=== PATIENT | male | born 1960 | race Caucasian/White ===

== ENCOUNTER → 2023-05-17 13:51 | Outpatient (CLI) | payer MEDICARE, SELFPAY ==
--- NOTE | ~2023-05-17 | MR_ITS ---
EXAMINATION: MR knee LT wo con DATE: 05/17/2023 14:34 INDICATION: Left knee pain and locking TECHNIQUE: Magnetic resonance imaging (MRI) of the left knee was performed without intravenous contra st. Sequences included coronal PD-weighted FSE, coronal PD-weighted FS FSE, sagittal T2-weighted FSE , sagittal PD-weighted FS FSE and axial PD weighted fat saturated FSE. COMPARISON: None. FINDINGS: Medial compartment: Complex tear of the body and posterior horn of the medial meniscus. There is medial extrusion of the meniscal body. The posterior horn appears small and there appears be a displaced meniscal flap extend ing cephalad from the meniscal body in the recess along the medial margin of the anterior weightbeari ng medial femoral condyle. Linear increased signal such with secondary tear planes within the remaini ng small posterior horn. Extensive partial thickness chondral ulceration in the medial compartment. T his includes deep chondral ulceration involving greater than 50% the cartilage thickness mild underly ing edema-like signal change at the central to medial aspect of the medial tibial plateau and at the junction of the anterior to central weightbearing medial femoral condyle. Small marginal osteophytes are present. Lateral compartment: Lateral meniscus is normal. Chondral swelling with deep fissuring an underlying small focus of subart icular edema-like signal change at the anterior weightbearing lateral femoral condyle. Additional par tial thickness cartilage loss without degenerative subchondral changes at the central aspect of the l ateral tibial plateau. Patellofemoral compartment: Partial-thickness chondral ulceration involving greater than 50% the cartilage thickness at the caldwell lar apical ridge and lateral side of the medial facet with relatively smooth chondral surface and wit hout degenerative subchondral changes. Shallow chondral fissuring at the central to medial aspect of the lateral patellar facet. Partial-thickness chondral ulceration involving up to 50% the cartilage t hickness and without degenerative subchondral changes at the trochlear groove and medial side of the lateral trochlea. Deep chondral fissuring without degenerative subchondral changes at the central to the cephalad medial trochlea. Ligaments and tendons: Anterior and posterior cruciate ligaments are normal. The fibular collateral ligament complex is norm al. Mild thickening and increased signal at the proximal aspect of the medial collateral ligament wit hout surrounding edema to suggest acute injury in this likely represents mild scarring related to chr onic sprain. The extensor mechanism is normal. The visualized medial and lateral hamstring tendons as well as the iliotibial band are normal. Fluid: Small left knee joint effusion with mild synovitis at the suprapatellar pouch. No loose osteochondral bodies identified. Small Delgado's cyst. Osseous/other: Bone alignment is normal. No fracture or pathologic marrow replacing process. Mild prepatellar edema without discrete bursal fluid collection. IMPRESSION: 1. Complex medial meniscal tear with displaced meniscal flap extending cephalad from the medially ext ruded meniscal body. 2. 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 3. Likely mild scarring related to chronic sprain at the proximal medial collateral ligament. 4. Small left knee joint effusion and small Delgado's cyst. Reviewed, dictated and finalized at location A. IMPRESSION: 1. Complex medial meniscal tear with displaced meniscal flap extending cephalad from the medially extruded meniscal bod
== END ==
PROVIDERS: PCP Family Medicine Adolescent Medicine; Visit Provider Family Medicine Adolescent Medicine
DX: S83.232A Complex tear of medial meniscus, current injury, left knee, initial encounter (principal); M17.12 Unilateral primary osteoarthritis, left knee; M25.462 Effusion, left knee; M71.22 Synovial cyst of popliteal space [Baker], left knee; X58.XXXA Exposure to other specified factors, initial encounter
CPT/HCPCS: 73721

== ENCOUNTER 2024-01-31 13:51 | Outpatient (CLI) | payer MEDICARE, SELFPAY | END 2024-01-31 13:52 | disposition home or self-care (01) | LOC: ANHAUDIO 13:52 | PROVIDERS: PCP Family Medicine Adolescent Medicine; Visit Provider Otolaryngology | DX: H91.93 Unspecified hearing loss, bilateral (principal) | CPT/HCPCS: 99199 ==

== ENCOUNTER 2024-04-11 12:51 | Outpatient (CLI) | payer MEDICARE, SELFPAY | END 2024-04-11 12:52 | disposition home or self-care (01) | LOC: ANHAUDASC 12:53 | PROVIDERS: PCP Family Medicine Adolescent Medicine; Visit Provider Otolaryngology | DX: H90.3 Sensorineural hearing loss, bilateral (principal) | CPT/HCPCS: 92557; 92567 ==